=== PATIENT | female | born 1950 | race African-American/Black ===

== ENCOUNTER 2020-01-12 14:04 | Emergency (ER) | payer OTHER ==
[~2020-01-12] VITALS: Ht 170.2 cm; Wt 122.5 kg
[~2020-01-12 14:04] MED LIST: ENBREL25 MG SUBQ; LISINOPRIL10 MG ORAL; PREDNISONE5 MG ORAL
[2020-01-12 14:05] VITALS: BP 160/83
[2020-01-12] MEDS ORDERED: Metoclopramide 10mg/2ml Inj IVP ONE (14:15)
[2020-01-12] MEDS ORDERED: LORazepam Inj 2mg/ml 1ml IV ONE (14:15)
[2020-01-12] MEDS ORDERED: DiphenhydrAMINE 50mg/ml Inj IVP ONE (14:15)
--- NOTE | 2020-01-12 14:20 | Emergency Room Report ---
History of Present Illness General Chief Complaint: Vertigo Source: Patient, EMS Present Illness HPI The patient woke up this morning and felt dizzy as in the world spinning when she sat up or moves her head upwards. When she feels the dizziness she has uncontrollable vomiting. She has no medication to help her with this. She denies fevers, sore throat, cough, chest pain, palpitations, dysuria or headache. She denies any tinnitus or ear pain. This is never happened to her before. The patient denied abdominal pain to me but told the nurse that she did have abdominal pain which was generalized. She feels it is related to her vomiting. She also has loose stools is brown in color denies any blood. Patient has a history of rheumatoid arthritis. She takes Enbrel and prednisone. She has chronic pain from her arthritis. 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 History of hypertension. No diarrhea, abdominal pain, shortness of breath, rashes, depression, anxiety, visual changes. COVID-19 risk:Contact w/high r: No COVID-19 risk:Travel to affect: No Has patient experienced spivey: No Allergies: Coded Allergies: No Known Allergies (Unverified , 02/04/13) Patient History Past Medical History: see triage record Social History: Reports: alcohol use - In the past Social History Narrative From home Reviewed Nursing Documentation: PMH: Agreed; PSxH: Agreed Nursing Documentation-PMH Hx Cardiac Problems: Yes Hx Hypertension: Yes Hx Cancer: Yes - LIPOSARCOMA RIGHT BREAST Hx Gastrointestinal Problems: Yes Hx Neurological Problems: Yes Hx Dizziness: Yes Review of Systems All Other Systems: negative except mentioned in HPI Physical Exam Vital Signs Date Time Temp Pulse Resp B/P (MAP) Pulse Ox O2 Delivery O2 Flow Rate FiO2 01/12/20 13:58 97.7 67 19 160/83 (108) 97 Room Air Sp02 EP Interpretation: reviewed, normal General Appearance: well appearing, no apparent distress, GCS 15, non-toxic, mild distress - vomits when lifts head Head: normocephalic Eyes: bilateral eye PERRL, bilateral eye abnormal EOM - nystagmus ENT: moist mucus membranes Neck: supple Respiratory: lungs clear, normal breath sounds Cardiovascular #1: regular rate, rhythm Cardiovascular #2: 2+ radial (R) Gastrointestinal: normal inspection, normal bowel sounds, non tender, no mass, non-distended, overweight Genitourinary: no CVA tenderness Musculoskeletal: back normal, normal range of motion, no calf tenderness, moves extm spontaneously Neurologic: alert, motor strength/tone normal, DTRs symmetric, oriented x3, sensory intact, nystagmus Psychiatric: depressed affect, anxious Skin: no rash, warm/dry Medical Decision Making Diagnostic Impression: Primary Impression: Labyrinthitis Qualified Codes: H83.09 - Labyrinthitis, unspecified ear ER Course Patient presents with nausea vomiting and vertigo. Differential includes labyrinthitis, central ischemia, Mnire's disease, other viral process amongst others. The fact that she is this symptomatic with a nonfocal neurologic exam aside from nystagmus suggests a peripheral etiology. Evaluation with EKG, chest x-ray and labs. Treatment with Reglan, Benadryl and Ativan. Patient is placed on a child monitor. EKG left axis deviation and first-degree block. CXR slight cardiomegaly. Labs unremarkable. After initial medication treatment patient denies any pain in her abdomen and is starting to feel better. Patient tolerating oral intake and ambulatory. Discussed findings and treatment plan. Discussed the need for outpatient follow-up. Patient stable for outpatient observation and treatment. Laboratory Tests Test 01/12/20 14:20 01/12/20 15:40 White Blood Count 11.2 K/UL (4.8-10.8) H Red Blood Count 4.63 M/UL (4.20-5.40) Hemoglobin 12.4 G/DL (12.0-16.0) Hematocrit 37.4 % (37.0-47.0) Mean Corpuscular Volume 81 FL (80-99) Mean Corpuscular Hemoglobin 26.7 PG (27.0-31.0) L Mean Corpuscular Hemoglobin Concent 33.1 G/DL (32.0-36.0) Red Cell Distribution Width 12.8 % (11.6-14.8) Platelet Count 195 K/UL (150-450) Mean Platelet Volume 7.0 FL (6.5-10.1) Neutrophils (%) (Auto) 75.6 % (45.0-75.0) H Lymphocytes (%) (Auto) 17.5 % (20.0-45.0) L Monocytes (%) (Auto) 5.8 % (1.0-10.0) Eosinophils (%) (Auto) 0.7 % (0.0-3.0) Basophils (%) (Auto) 0.5 % (0.0-2.0) Prothrombin Time 10.2 SEC (9.30-11.50) Prothrombin Time INR 1.0 (0.9-1.1) Activated Partial Thromboplast Time 23 SEC (23-33) Sodium Level 146 MMOL/L (136-145) H Potassium Level 4.0 MMOL/L (3.5-5.1) Chloride Level 108 MMOL/L (98-107) H Carbon Dioxide Level 26 MMOL/L (21-32) Anion Gap 13 mmol/L (5-15) Blood Urea Nitrogen 15 mg/dL (7-18) Creatinine 0.6 MG/DL (0.55-1.30) Estimated Glomerular Filtration Rate > 60 mL/min (>60) Glucose Level 123 MG/DL (74-106) H Lactic Acid Level 1.70 mmol/L (0.4-2.0) Calcium Level 9.6 MG/DL (8.5-10.1) Total Bilirubin 0.6 MG/DL (0.2-1.0) Aspartate Amino Transferase (AST) 21 U/L (15-37) Alanine Aminotransferase (ALT) 36 U/L (12-78) Alkaline Phosphatase 113 U/L (46-116) Total Creatine Kinase 54 U/L (26-308) Troponin I 0.002 ng/mL (0.000-0.056) Pro-B-Type Natriuretic Peptide 187 pg/mL (0-125) H Total Protein 7.2 G/DL (6.4-8.2) Albumin 3.4 G/DL (3.4-5.0) Globulin 3.8 g/dL Albumin/Globulin Ratio 0.9 (1.0-2.7) L Lipase 109 U/L (73-393) Urine Color Pale yellow Urine Appearance Clear Urine pH 6 (4.5-8.0) Urine Specific [place] 1.020 (1.005-1.035) Urine Protein Negative (NEGATIVE) Urine Glucose (UA) Negative (NEGATIVE) Urine Ketones Negative (NEGATIVE) Urine Blood Negative (NEGATIVE) Urine Nitrite Negative (NEGATIVE) Urine Bilirubin Negative (NEGATIVE) Urine Urobilinogen Normal MG/DL (0.0-1.0) Urine Leukocyte Esterase Negative (NEGATIVE) EKG Diagnostic Results Rate: normal Rhythm: NSR ST Segments: no acute changes - Left axis deviation first-degree AV block Rhythm Strip Diag. Results EP Interpretation: yes Rhythm: NSR, no PVC's, no ectopy Chest X-Ray Diagnostic Results Chest X-Ray Diagnostic Results : Chest X-Ray Ordered: Yes # of Views/Limited/Complete: 1 View Indication: Other EP Interpretation: Yes Interpretation: no consolidation, no effusion, no pneumothorax, other - Cardiomegaly Impression: Other Electronically Signed by: Electronically signed by Jimmy Canales MD Last Vital Signs Date Time Temp Pulse Resp B/P (MAP) Pulse Ox O2 Delivery O2 Flow Rate FiO2 01/12/20 18:05 97.5 66 18 161/86 100 Room Air Status: improved Disposition: HOME, SELF-CARE Condition: Improved Scripts Ondansetron Odt* (ZOFRAN ODT*) 4 Mg Tab.rapdis 4 MG BC EVERY 8 HOURS, #6 TAB 1 Refill Prov: Jimmy Canales MD 01/12/20 Meclizine Hcl* (MECLIZINE*) 25 Mg Tablet 25 MG ORAL THREE TIMES A DAY PRN for vertigo, #10 TAB Prov: Jimmy Canales MD 01/12/20 Lorazepam* (ATIVAN*) 0.5 Mg Tablet 0.5 MG ORAL THREE TIMES A DAY PRN for vertigo, #8 TAB Prov: Jimmy Canales MD 01/12/20 iJmmy Canales MD Jan 12, 2020 14:20
[2020-01-12 14:49] LABS: BASOPHILS % (AUTO) 0.5 % (0.0-2.0); EOSINOPHILS % (AUTO) 0.7 % (0.0-3.0); HEMATOCRIT 37.4 % (37.0-47.0); HEMOGLOBIN 12.4 G/DL (12.0-16.0); LYMPHOCYTES % (AUTO) 17.5 % (20.0-45.0); MEAN CORPUSCULAR VOLUME 81 FL (80-99); MONOCYTES % (AUTO) 5.8 % (1.0-10.0); NEUTROPHILS % (AUTO) 75.6 % (45.0-75.0); PLATELET COUNT 195 K/UL (150-450); RED BLOOD COUNT 4.63 M/UL (4.20-5.40); RED CELL DISTRIBUTION WIDTH 12.8 % (11.6-14.8); WHITE BLOOD COUNT 11.2 K/UL (4.8-10.8)
[2020-01-12 15:06] LABS: ANION GAP 13 mmol/L (5-15); BLOOD UREA NITROGEN 15 mg/dL (7-18); CALCIUM 9.6 MG/DL (8.5-10.1); CARBON DIOXIDE 26 MMOL/L (21-32); CHLORIDE 108 MMOL/L (98-107); CREATININE 0.6 MG/DL (0.55-1.30); SODIUM 146 MMOL/L (136-145)
[2020-01-12 15:16] LABS: ALANINE AMINOTRANSFERASE 36 U/L (12-78); ALBUMIN 3.4 G/DL (3.4-5.0); ALBUMIN/GLOBULIN RATIO 0.9 (1.0-2.7); ALKALINE PHOSPHATASE 113 U/L (46-116); ASPARTATE AMINO TRANSFERASE 21 U/L (15-37); BILIRUBIN,TOTAL 0.6 MG/DL (0.2-1.0); CREATINE KINASE 54 U/L (26-308)
[2020-01-12 16:05] VITALS: BP 159/82
[2020-01-12 16:35] LABS: APPEARANCE,URINE CLEAR; BILIRUBIN, URINE NEGATIVE (NEGATIVE); COLOR,URINE PALE YELLOW; GLUCOSE, URINE (UA) NEGATIVE (NEGATIVE); KETONES,URINE NEGATIVE (NEGATIVE); LEUKOCYTE ESTERASE ,URINE NEGATIVE (NEGATIVE); NITRITE,URINE NEGATIVE (NEGATIVE); PH,URINE 6 (4.5-8.0); PROTEIN,URINE NEGATIVE (NEGATIVE); UROBILINOGEN,URINE NORMAL MG/DL (0.0-1.0)
[2020-01-12] MEDS ORDERED: ATIVAN0.5 MG ORAL (17:45)
[2020-01-12] MEDS ORDERED: ONDANSETRON ODT4 MG BC (17:45)
[2020-01-12] MEDS ORDERED: MECLIZINE HCL25 MG ORAL (17:45)
[2020-01-12 17:46] VITALS: BP 161/86
[2020-01-12 18:05] VITALS: BP 161/86
--- NOTE | 2020-01-13 13:01 | Diagnostic Imaging Report ---
Indication: Dyspnea Comparison: 02/04/2013 A single view chest radiograph was obtained. Findings: No definite infiltrate or pulmonary vascular congestion identified. The heart is enlarged. The aorta is mildly enlarged consistent with atherosclerotic vascular disease. The bones are osteopenic. There are thoracic vertebral enthesophytes at multiple levels. Impression: No acute disease
== END 2020-01-12 18:05 | disposition home or self-care (01) ==
LOC: EDBD 14:04 → EMR 14:30
DX: H83.09 Labyrinthitis, unspecified ear (principal); M06.9 Rheumatoid arthritis, unspecified; I10 Essential (primary) hypertension; I44.0 Atrioventricular block, first degree; I51.7 Cardiomegaly
CPT/HCPCS: 36415; 71045; 80053; 81003; 82550; 83605; 83690; 83880; 84484; 85025; 85610; 85730; 93005; 96361; 96374; 96375; 99284; J1200; J2765; J7030